=== PATIENT | female | born 1955 | race Caucasian/White ===

== ENCOUNTER 2017-12-28 16:29 | Observation (INO) | payer BC, OTHER ==
[~2017-12-28] VITALS: Ht 170.2 cm; Wt 52.0 kg
[2017-12-28 16:50] VITALS: BP 171/100; PULSE 85; RESP 18; TEMP 97.7; O2SAT 98
--- NOTE | 2017-12-28 16:56 | PD ---
HPI Chief Complaint: Syncope/Near-Syncope Time Seen by Provider: 16:53 Travel History International Travel<30 days: No Contact w/Intl Traveler<30days: No Traveled to known affect area: No History of Present Illness HPI 62-year-old female with PMH of left bundle branch block presents to the ED by EMS for evaluation of near syncopal episode. Patient states that she was enjoying bike week with her when she felt dizziness and palpitations of her heart. She states that she collapsed into his arms. On presentation she reports a lightheaded sensation, mild nausea. She denies vision changes or headache. She denies chest pain, cough, abdominal pain, nausea, vomiting, dysuria. She states that she is visiting from [place], [place]. Per EMS report the patient was in sinus rhythm during transport with a few episodes of SVT. Patient was provided with a dose of Zofran en route. PFSH Social History Tobacco Use: No Allergies-Medications (Allergen,Severity, Reaction): Coded Allergies: No Known Allergies (Verified Allergy, Unknown, 12/28/17) Reported Meds & Prescriptions Reported Meds & Active Scripts Active Reported [Manest] 1 Tab PO DAILY Review of Systems Except as stated in HPI: all other systems reviewed are Neg Physical Exam Narrative GENERAL: Well-nourished, well-developed thin white female in no acute distress. SKIN: Focused skin assessment warm/dry. HEAD: Normocephalic. EYES: No scleral icterus. No injection or drainage. NECK: Supple, trachea midline. No JVD or lymphadenopathy. CARDIOVASCULAR: Regular rate and rhythm without murmurs, gallops, or rubs. RESPIRATORY: Breath sounds clear and equal bilaterally. No accessory muscle use. GASTROINTESTINAL: Abdomen soft, non-tender, nondistended. Active bowel sounds. MUSCULOSKELETAL: No cyanosis, or edema. Moves extremities spontaneously. NEUROLOGICAL: Awake and alert. Cranial nerves II through XII intact. Motor and sensory grossly within normal limits. Five out of 5 muscle strength in all muscle groups. Normal speech. BACK: Nontender without obvious deformity. No CVA tenderness. Data Data Last Documented VS Vital Signs Date Time Temp Pulse Resp B/P (MAP) Pulse Ox O2 Delivery O2 Flow Rate FiO2 12/28/17 16:58 97.8 84 17 158/99 (118) 99 Room Air Orders Orders Electrocardiogram (12/28/17 16:53) Complete Blood Count With Diff (12/28/17 16:53) Comprehensive Metabolic Panel (12/28/17 16:53) Magnesium (Mg) (12/28/17 16:53) Ckmb (Isoenzyme) Profile (12/28/17 16:53) Troponin I (12/28/17 16:53) Act Partial Throm Time (Ptt) (12/28/17 16:53) Prothrombin Time / Inr (Pt) (12/28/17 16:53) Urinalysis - C+S If Indicated (12/28/17 16:53) Chest, Single Ap (12/28/17 16:53) Ct Brain W/O Iv Contrast(Rout) (12/28/17 16:53) Ecg Monitoring (12/28/17 16:53) Iv Access Insert/Monitor (12/28/17 16:53) Oximetry (12/28/17 16:53) Sodium Chloride 0.9% Flush (Ns Flush) (12/28/17 17:00) Potassium Chloride (Kcl) (12/28/17 18:00) Calcium Carbonate Chew (Tums Chew) (12/28/17 18:00) Sodium Chlorid 0.9% 500 Ml Inj (Ns 500 M (12/28/17 18:00) Labs Laboratory Tests Test 12/28/17 17:09 12/28/17 17:24 White Blood Count 10.7 TH/MM3 Red Blood Count 3.31 MIL/MM3 Hemoglobin 10.7 GM/DL Hematocrit 30.7 % Mean Corpuscular Volume 92.9 FL Mean Corpuscular Hemoglobin 32.2 PG Mean Corpuscular Hemoglobin Concent 34.7 % Red Cell Distribution Width 13.4 % Platelet Count 253 TH/MM3 Mean Platelet Volume 7.6 FL Neutrophils (%) (Auto) 72.4 % Lymphocytes (%) (Auto) 18.9 % Monocytes (%) (Auto) 6.3 % Eosinophils (%) (Auto) 1.6 % Basophils (%) (Auto) 0.8 % Neutrophils # (Auto) 7.8 TH/MM3 Lymphocytes # (Auto) 2.0 TH/MM3 Monocytes # (Auto) 0.7 TH/MM3 Eosinophils # (Auto) 0.2 TH/MM3 Basophils # (Auto) 0.1 TH/MM3 CBC Comment DIFF FINAL Differential Comment Prothrombin Time 10.2 SEC Prothromb Time International Ratio 1.0 RATIO Activated Partial Thromboplast Time 23.4 SEC Blood Urea Nitrogen 15 MG/DL Creatinine 0.68 MG/DL Random Glucose 86 MG/DL Total Protein 6.5 GM/DL Albumin 3.1 GM/DL Calcium Level 8.3 MG/DL Magnesium Level 1.8 MG/DL Alkaline Phosphatase 99 U/L Aspartate Amino Transf (AST/SGOT) 13 U/L Alanine Aminotransferase (ALT/SGPT) 23 U/L Total Bilirubin 0.4 MG/DL Sodium Level 141 MEQ/L Potassium Level 3.1 MEQ/L Chloride Level 107 MEQ/L Carbon Dioxide Level 25.0 MEQ/L Anion Gap 9 MEQ/L Estimat Glomerular Filtration Rate 88 ML/MIN Total Creatine Kinase 85 U/L Troponin I LESS THAN 0.02 NG/ML Urine Color YELLOW Urine Turbidity CLEAR Urine pH 8.5 Urine Specific [place] 1.012 Urine Protein NEG mg/dL Urine Glucose (UA) NEG mg/dL Urine Ketones NEG mg/dL Urine Occult Blood SMALL Urine Nitrite NEG Urine Bilirubin NEG Urine Urobilinogen LESS THAN 2.0 MG/DL Urine Leukocyte Esterase TRACE Urine RBC 2 /hpf Urine WBC 1 /hpf Urine Squamous Epithelial Cells 4 /hpf Urine Mucus FEW /lpf Microscopic Urinalysis Comment CULT NOT INDICATED MDM Medical Decision Making Medical Screen Exam Complete: Yes Emergency Medical Condition: Yes Differential Diagnosis Dysrhythmia versus metabolic derangement versus ACS versus ICH versus dehydration versus other Narrative Course 62-year-old female with PMH of left bundle branch block presents to the ED by EMS for evaluation of near syncopal episode. Patient endorses dizziness and palpitations of her heart before collapse. On presentation she reports a lightheaded sensation, mild nausea. She states that she is visiting from [place], [place]. Per EMS report the patient was in sinus rhythm during transport with a few episodes of SVT. Patient was provided with a dose of Zofran en route. Afebrile, pulse 85, BP 171/100 on presentation. On exam this is a petite white female in no acute distress. No focal neuro deficits. No appreciable M/R/E. Chest CTA B. Abdomen soft and nontender. No lower extremity edema. IV was established. Patient was administered 4 mg of Zofran. EKG rate 85, sinus rhythm with occasional PVC sees. NM interval 140, QRS 141, QTC 452 ms. Left axis deviation. Left bundle branch block. No acute ST changes. Reviewed by Dr. Martinez. CXR: No acute disease per radiology read. Cardiac enzymes negative 1. CBC: WBC 10.7, hemoglobin 10.7. Coags: INR 1.0. CMP: Potassium 3.1. BUN 15, creatinine 0.68. Calcium 8.3. UA: her indicated. Patient was administered 1 g calcium chew and 40 mEq of potassium by mouth as well as 500 mL stone saline. I discussed the workup with the patient as well as recommendation for syncopal workup. Patient is agreeable to this plan. Patient's is at bedside and states the patient had a similar episode around 10:00 last night. I spoke with who agrees to accept the patient to the medicine service. Please see medicine notes for disposition. Cary Edwards Dec 28, 2017 16:56
[2017-12-28 16:58] VITALS: BP 158/99; PULSE 81; PULSE 84; RESP 17; TEMP 97.8; O2SAT 99
[2017-12-28] MEDS ORDERED: SODIUM CHLORIDE 0.9% FLUSH 10 ML FLUSH IVF PRN (17:00)
[2017-12-28] MEDS ORDERED: [UNRECOGNIZED DRUG - OTHER] PO (17:04)
--- NOTE | 2017-12-28 17:19 | RADRPT ---
EXAM DATE/TIME: 12/28/2017 17:03 [facility] COMPARISON: No previous studies available for comparison. INDICATIONS : Palpitations, syncope. MEDICAL HISTORY : None. SURGICAL HISTORY : None. ENCOUNTER: Initial ACUITY: 2 days PAIN SCORE: 0/10 LOCATION: Bilateral chest FINDINGS: A single view of the chest demonstrates the lungs to be symmetrically aerated without evidence of mas s, infiltrate or effusion. The cardiomediastinal contours are unremarkable. Osseous structures are intact. CONCLUSION: No acute disease. Durga Marcelino MD on December 28, 2017 at 17:17 Board Certified Radiologist. This report was verified electronically.
[2017-12-28 17:30] LABS: AUTOMATED NEUTROPHIL # 7.8 TH/MM3 (1.8-7.7); BASOPHIL # 0.1 TH/MM3 (0-0.2); BASOPHIL % 0.8 % (0.0-2.0); EOSINOPHIL # 0.2 TH/MM3 (0-0.4); EOSINOPHIL % 1.6 % (0.0-4.0); HEMATOCRIT 30.7 % (35.0-46.0); HEMOGLOBIN 10.7 GM/DL (11.6-15.3); LYMPH % 18.9 % (9.0-44.0); MEAN CELL VOLUME 92.9 FL (80.0-100.0); MEAN CORPUSCULAR HEMOGLOBIN 32.2 PG (27.0-34.0); MEAN CORPUSCULAR HGB CONC 34.7 % (32.0-36.0); MEAN PLATELET VOLUME 7.6 FL (7.0-11.0); MONO % 6.3 % (0.0-8.0); MONOCYTE # 0.7 TH/MM3 (0-0.9); NEUT % 72.4 % (16.0-70.0); PLATELET COUNT 253 TH/MM3 (150-450); RED BLOOD COUNT 3.31 MIL/MM3 (4.00-5.30); RED CELL DISTRIBUTION WIDTH 13.4 % (11.6-17.2); WHITE BLOOD COUNT 10.7 TH/MM3 (4.0-11.0)
--- NOTE | 2017-12-28 17:41 | RADRPT ---
EXAM DATE/TIME: 12/28/2017 17:25 [facility] COMPARISON: No previous studies available for comparison. INDICATIONS : Dizzy, nausea RADIATION DOSE: 34.90 CTDIvol (mGy) MEDICAL HISTORY : None SURGICAL HISTORY : None. ENCOUNTER: Initial ACUITY: 1 day PAIN SCALE: 0/10 LOCATION: cranial TECHNIQUE: Multiple contiguous axial images were obtained of the head. Using automated exposure control and adj ustment of the mA and/or kV according to patient size, radiation dose was kept as low as reasonably a chievable to obtain optimal diagnostic quality images. DICOM format image data is available electro nically for review and comparison. FINDINGS: CEREBRUM: The ventricles are normal for age. No evidence of midline shift, mass lesion, hemorrhage or acute in farction. No extra-axial fluid collections are seen. POSTERIOR FOSSA: The cerebellum and brainstem are intact. The 4th ventricle is midline. The cerebellopontine angle i s unremarkable. EXTRACRANIAL: The visualized portion of the orbits is intact. SKULL: The calvaria is intact. No evidence of skull fracture. CONCLUSION: No acute disease. Durga Marcelino MD on December 28, 2017 at 17:39 Board Certified Radiologist. This report was verified electronically.
[2017-12-28 17:42] LABS: PROTHROMBIN TIME - PATIENT 10.2 SEC (9.8-11.6)
[2017-12-28 17:42] LABS: BILIRUBIN, URINE NEG (NEG); BLOOD, URINE SMALL (NEG); GLUCOSE,URINE NEG (NEG); KETONE, URINE NEG (NEG); MUCUS URINE FEW /lpf (OCC); NITRITE,URINE NEG (NEG); PH, URINE 8.5 (5.0-8.5); SQUAMOUS EPITHELIAL CELL URINE 4 /hpf (0-5); URINE COLOR YELLOW (YELLW/STRAW); URINE LEUKOCYTE ESTERASE TRACE (NEG)
[2017-12-28 17:43] LABS: ALBUMIN 3.1 GM/DL (3.4-5.0); AST (GOT) 13 U/L (15-37); BLOOD UREA NITROGEN 15 MG/DL (7-18); CALCIUM 8.3 MG/DL (8.5-10.1); CHLORIDE 107 MEQ/L (98-107); CREATININE 0.68 MG/DL (0.50-1.00); GLOMERULAR FILTRATION RATE 88 ML/MIN (>89); GLUCOSE,RANDOM 86 MG/DL (74-106); MAGNESIUM 1.8 MG/DL (1.5-2.5); SODIUM (NA) 141 MEQ/L (136-145)
[2017-12-28 17:48] LABS: ALKALINE PHOSPHATASE 99 U/L (45-117); ALT (GPT) 23 U/L (10-53); TOTAL BILIRUBIN ADULT 0.4 MG/DL (0.2-1.0); TOTAL PROTEIN 6.5 GM/DL (6.4-8.2); TROPONIN I LESS THAN 0.02 NG/ML (0.02-0.05)
[2017-12-28] MEDS ORDERED: CALCIUM CARBONATE 500 MG CHEWABLE TAB CHEW ONE (18:00)
[2017-12-28] MEDS ORDERED: POTASSIUM CHLORIDE 20 MEQ CONTROLLED RELEASE TAB PO ONE (18:00)
[2017-12-28] MEDS ORDERED: SODIUM CHLORID 0.9% 500 ML INJ 500 ML IV ONE (18:00)
[2017-12-28 18:23] VITALS: BP 158/99; PULSE 83; RESP 15; O2SAT 99
[2017-12-28] MEDS ORDERED: MAGNESIUM HYDROXIDE SUSP 30 ML CUP PO PRN (18:45)
[2017-12-28] MEDS ORDERED: LACTULOSE SYRUP 20 GM/30 ML CUP PO PRN (18:45)
[2017-12-28] MEDS ORDERED: SENNOSIDES 8.6 MG TAB PO PRN (18:45)
[2017-12-28] MEDS ORDERED: ONDANSETRON HCL 4 MG/2 ML VIAL IVP PRN (18:45)
[2017-12-28] MEDS ORDERED: BISACODYL 10 MG SUPP RECTAL PRN (18:45)
[2017-12-28] MEDS ORDERED: SODIUM CHLORIDE 0.9% FLUSH 10 ML FLUSH IV FLUSH PRN (18:45)
[2017-12-28] MEDS ORDERED: NALOXONE HCL 0.4 MG/ML AMP IV PUSH PRN (18:45)
[2017-12-28] MEDS ORDERED: ACETAMINOPHEN 325 MG TAB PO PRN (18:45)
--- NOTE | 2017-12-28 18:48 | HHI.HP ---
[facility] Service Family Medicine Primary Care Physician No Primary Care Physician Admission Diagnosis near syncope Diagnoses: International Travel<30 Days: No Contact w/Intl Traveler<30days: No Known Affected Area: No History of Present Illness Patient is a 62-year-old female with history significant for LBBB which she states that she had due to a congenital anomaly. Denies a history of ND. Presented here today due to near syncopal episode. Reports that she was walking around the vendors today when she suddenly felt like she was going to pass out. This was around 10:30 AM. Associated with palpitations but no nausea , vomiting, chest pain, S OB. She did endorse feeling flushed. Symptoms waxed and waned for unknown amount of time. Has never had an episode like this before. Reports that symptoms worsened when she would try to get up and be active. Denies LOC or falling. Per chart review, while patient was in EMS there were a few episodes of SVT. Since being in the hospital she feels much better. Denies any recent alcohol use since being on vacation. Had a small breakfast but this is her normal. No recent illness. Patient is typically active. Review of Systems Constitutional: DENIES: Fever, Chills, Dizziness Endocrine: DENIES: Polydipsia, Polyuria Eyes: DENIES: Eye inflammation Ears, nose, mouth, throat: COMPLAINS OF: Vertigo, DENIES: Running Nose Respiratory: DENIES: Cough, Shortness of breath Cardiovascular: COMPLAINS OF: Palpitations, DENIES: Chest pain, Syncope, Dyspnea on Exertion Gastrointestinal: DENIES: Abdominal pain, Bloody stools, Constipation, Diarrhea , Nausea, Vomiting Genitourinary: DENIES: Hematuria, Dysuria Musculoskeletal: DENIES: Joint pain Integumentary: DENIES: Rash Neurologic: DENIES: Abnormal gait, Headache, Seizures Psychiatric: DENIES: Confusion Past Family Social History Past Medical History 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 Does not need to follow with wireless field technician per patient. Past Surgical History Partial hysterectomy 1980 Allergies: Coded Allergies: No Known Allergies (Verified Allergy, Unknown, 12/28/17) Family History Mother: Breast cancer but otherwise healthy Father: Healthy currently very active at the age of 85 Social History Lives with Visiting from [place] for bike week for [employer] Alcohol: Rarely, 3 times a year Tobacco: Denies Illicit drugs: Denies Physical Exam Vital Signs Vital Signs Date Time Temp Pulse Resp B/P (MAP) Pulse Ox O2 Delivery O2 Flow Rate FiO2 12/28/17 18:23 83 15 158/99 (118) 99 Room Air 12/28/17 16:58 97.8 84 17 158/99 (118) 99 Room Air 12/28/17 16:58 97.8 81 17 158/99 (118) 99 Room Air 12/28/17 16:58 83 17 99 Room Air 12/28/17 16:50 97.7 85 18 171/100 (123) 98 Physical Exam GENERAL: Thin woman in no acute distress. SKIN: No rashes, ecchymoses or lesions. Cool and dry. HEAD: Atraumatic. Normocephalic. EYES: Pupils equal round and reactive. Extraocular motions intact. No scleral icterus. No injection or drainage. ENT: Nose without bleeding, purulent drainage. Throat without erythema, tonsillar hypertrophy or exudate. Uvula midline. Airway patent. NECK: No JVD or lymphadenopathy. Supple, nontender, no meningeal signs. CARDIOVASCULAR: Regular rate and rhythm without murmurs, gallops, or rubs. RESPIRATORY: Clear to auscultation. Breath sounds equal bilaterally. No wheezes , rales, or rhonchi. GASTROINTESTINAL: Abdomen soft, non-tender, nondistended. No hepato-splenomegaly , or palpable masses. No guarding. MUSCULOSKELETAL: Extremities without clubbing, cyanosis, or edema. No joint tenderness, effusion, or edema noted. No calf tenderness. NEUROLOGICAL: Awake and alert. Motor and sensory grossly within normal limits. Normal speech. Laboratory Laboratory Tests Test 12/28/17 17:09 12/28/17 17:24 White Blood Count 10.7 Red Blood Count 3.31 Hemoglobin 10.7 Hematocrit 30.7 Mean Corpuscular Volume 92.9 Mean Corpuscular Hemoglobin 32.2 Mean Corpuscular Hemoglobin Concent 34.7 Red Cell Distribution Width 13.4 Platelet Count 253 Mean Platelet Volume 7.6 Neutrophils (%) (Auto) 72.4 Lymphocytes (%) (Auto) 18.9 Monocytes (%) (Auto) 6.3 Eosinophils (%) (Auto) 1.6 Basophils (%) (Auto) 0.8 Neutrophils # (Auto) 7.8 Lymphocytes # (Auto) 2.0 Monocytes # (Auto) 0.7 Eosinophils # (Auto) 0.2 Basophils # (Auto) 0.1 CBC Comment DIFF FINAL Differential Comment Prothrombin Time 10.2 Prothromb Time International Ratio 1.0 Activated Partial Thromboplast Time 23.4 Blood Urea Nitrogen 15 Creatinine 0.68 Random Glucose 86 Total Protein 6.5 Albumin 3.1 Calcium Level 8.3 Magnesium Level 1.8 Alkaline Phosphatase 99 Aspartate Amino Transf (AST/SGOT) 13 Alanine Aminotransferase (ALT/SGPT) 23 Total Bilirubin 0.4 Sodium Level 141 Potassium Level 3.1 Chloride Level 107 Carbon Dioxide Level 25.0 Anion Gap 9 Estimat Glomerular Filtration Rate 88 Total Creatine Kinase 85 Troponin I LESS THAN 0.02 Urine Color YELLOW Urine Turbidity CLEAR Urine pH 8.5 Urine Specific [place] 1.012 Urine Protein NEG Urine Glucose (UA) NEG Urine Ketones NEG Urine Occult Blood SMALL Urine Nitrite NEG Urine Bilirubin NEG Urine Urobilinogen LESS THAN 2.0 Urine Leukocyte Esterase TRACE Urine RBC 2 Urine WBC 1 Urine Squamous Epithelial Cells 4 Urine Mucus FEW Microscopic Urinalysis Comment CULT NOT INDICATED Result Diagram: 12/28/17 1709 12/28/17 170 Imaging Last Impressions Head CT 12/28/171652 Signed Impressions: Service Date/Time: Thursday, December 28, 2017 17:25 - CONCLUSION: No acute disease. Durga Marcelino MD Chest X-Ray 12/28/171652 Signed Impressions: Service Date/Time: Thursday, December 28, 2017 17:03 - CONCLUSION: No acute disease. Durga Marcelino MD [place] VTE Risk Assessment Caprini VTE Risk Assessment: Mod/High Risk (score >= 2) Caprini Risk Assessment Model Point Value = 1 Point Value = 2 Point Value = 3 Point Value = 5 Age 41-60 Minor surgery BMI > 25 kg/m2 Swollen legs Varicose veins or History of unexplained or recurrent spontaneous Oral contraceptives or hormone replacement Sepsis (< 1 month) Serious lung disease, including pneumonia (< 1 month) Abnormal pulmonary function Acute myocardial infarction Congestive heart failure (< 1 month) History of inflammatory bowel disease Medical patient at bed rest Age 61-74 Arthroscopic surgery Major open surgery (> 45 min) Laparoscopic surgery (> 45 min) Malignancy Confined to bed (> 72 hours) Immobilizing plaster cast Central venous access Age >= 75 History of VTE Family history of VTE Factor V Leiden Prothrombin [id number] Lupus anticoagulant Anticardiolipin antibodies Elevated serum homocysteine Heparin-induced thrombocytopenia Other congenital or acquired thrombophilia Stroke (< 1 month) Elective arthroplasty Hip, pelvis, or leg fracture Acute spinal cord injury (< 1 month) Prophylaxis Regimen Total Risk Factor Score Risk Level Prophylaxis Regimen 0-1 Low Early ambulation 2 Moderate Order ONE of the following: *Sequential Compression Device (SCD) *Heparin 5000 units SQ BID 3-4 Higher Order ONE of the following medications: *Heparin 5000 units SQ TID *Enoxaparin/Lovenox 40 mg SQ daily (WT < 150 kg, CrCl > 30 mL/min) *Enoxaparin/Lovenox 30 mg SQ daily (WT < 150 kg, CrCl > 10-29 mL/min) *Enoxaparin/Lovenox 30 mg SQ BID (WT < 150 kg, CrCl > 30 mL/min) AND/OR *Sequential Compression Device (SCD) 5 or more Highest Order ONE of the following medications: *Heparin 5000 units SQ TID (Preferred with Epidurals) *Enoxaparin/Lovenox 40 mg SQ daily (WT < 150 kg, CrCl > 30 mL/min) *Enoxaparin/Lovenox 30 mg SQ daily (WT < 150 kg, CrCl > 10-29 mL/min) *Enoxaparin/Lovenox 30 mg SQ BID (WT < 150 kg, CrCl > 30 mL/min) AND *Sequential Compression Device (SCD) Assessment and Plan Assessment and Plan 62yo female with hx significant for LBBB not related to CAD. Admitted for pre- syncope. Code Status Full Problem List: (1) Pre-syncope ICD Codes: R55 - Syncope and collapse Status: Acute Plan: Patient presenting with a first-time episode of near syncopal symptoms that developed suddenly and associated with palpitations. Per chart review, there was intermittent episodes of SVT during the ambulance ride to the hospital. Per ED documentation: EKG in the ED showed sinus rhythm with occasional PVCs and LBBB. Symptoms likely related to vasovagal vs orthostatics however there is a history of a cardiac defect that may place patient at a higher risk for cardiac etiology. -low concern for ACS but will trend troponins and EKG -Orthostatics ordered -Monitor bedside glucose -TSH ordered -Echo also ordered for evaluation of structural abnormalities -Cardiac telemetry 24 hours (2) History of left bundle branch block (LBBB) ICD Codes: Z86.79 - Personal history of other diseases of the circulatory system Plan: History of left bundle branch block but are not related to ND per patient. 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 Reports that she does not have to follow with a wireless field technician at this time. Has had no issues cardiac related. -Of note patient's BP has been elevated in the ED, not currently any medications. Continue to follow to determine need of further treatment. -Vasotec as needed for blood pressure (3) Anemia ICD Codes: D64.9 - Anemia, unspecified Status: Acute Plan: Low hemoglobin found on admission. Patient does not report a history of anemia. No evidence of acute bleed. -Ferritin ordered -May benefit from further workup as an outpatient for cause of anemia in postmenopausal woman (4) Nutrition, metabolism, and development symptoms ICD Codes: R63.8 - Other symptoms and signs concerning food and fluid intake Plan: Diet: Regular Fluids: PO hydration Electrolytes: Mild hypokalemia repleted 40 MEQ DVT prophylaxis: Lovenox GI prophylaxis: Not indicated Susan Holcomb MD, R3 Dec 28, 2017 18:48
[2017-12-28 19:19] VITALS: BP 168/98; PULSE 86; RESP 19; O2SAT 99
[2017-12-28] MEDS ORDERED: ENALAPRILAT 1.25 MG/ML VIAL IV PUSH PRN (20:15)
[2017-12-28 20:20] VITALS: BP 145/88; PULSE 82; RESP 17; O2SAT 97
[2017-12-28] MEDS: DOCUSATE SODIUM 50 MG/SENNA 8.6 MG TAB PO SCH (21:00)
[2017-12-28 21:20] VITALS: BP 138/94; PULSE 79; RESP 15; O2SAT 97
[2017-12-28] MEDS: ENOXAPARIN SODIUM 40 MG/0.4 ML SYRINGE SQ SCH (21:55)
[2017-12-28] MEDS: SODIUM CHLORIDE 0.9% FLUSH 10 ML FLUSH IV FLUSH SCH (21:55)
[2017-12-29] VITALS (9 sets, daily range): BP systolic 126–167; BP diastolic 81–100; PULSE 71–92; RESP 18–20; TEMP 97.2–98.4; O2SAT 97–100
[2017-12-29 00:06] LABS: FERRITIN 71 NG/ML (8-252); TROPONIN I LESS THAN 0.02 NG/ML (0.02-0.05)
[2017-12-29 05:49] LABS: AUTOMATED NEUTROPHIL # 4.3 TH/MM3 (1.8-7.7); BASOPHIL # 0.1 TH/MM3 (0-0.2); EOSINOPHIL # 0.2 TH/MM3 (0-0.4); HEMATOCRIT 29.5 % (35.0-46.0); HEMOGLOBIN 10.4 GM/DL (11.6-15.3); LYMPH % 35.2 % (9.0-44.0); LYMPHOCYTE # 2.9 TH/MM3 (1.0-4.8); MEAN CELL VOLUME 92.3 FL (80.0-100.0); MEAN CORPUSCULAR HEMOGLOBIN 32.4 PG (27.0-34.0); MEAN CORPUSCULAR HGB CONC 35.1 % (32.0-36.0); MEAN PLATELET VOLUME 7.6 FL (7.0-11.0); MONO % 7.8 % (0.0-8.0); MONOCYTE # 0.6 TH/MM3 (0-0.9); PLATELET COUNT 245 TH/MM3 (150-450); RED CELL DISTRIBUTION WIDTH 13.3 % (11.6-17.2); WHITE BLOOD COUNT 8.1 TH/MM3 (4.0-11.0)
[2017-12-29 05:59] LABS: BICARBONATE 27.1 MEQ/L (21.0-32.0); BLOOD UREA NITROGEN 12 MG/DL (7-18); CALCIUM 8.6 MG/DL (8.5-10.1); CHLORIDE 110 MEQ/L (98-107); CREATININE 0.59 MG/DL (0.50-1.00); GLOMERULAR FILTRATION RATE 103 ML/MIN (>89); GLUCOSE,RANDOM 97 MG/DL (74-106); SODIUM (NA) 143 MEQ/L (136-145)
[2017-12-29 06:03] LABS: TROPONIN I LESS THAN 0.02 NG/ML (0.02-0.05)
[2017-12-29] MEDS: DOCUSATE SODIUM 50 MG/SENNA 8.6 MG TAB PO SCH ×2 (09:00→21:27)
--- NOTE | 2017-12-29 12:09 | HHI.FPPN ---
Subjective Remarks Patient was seen and examined this morning by medical team. She denies any chest pain, shortness of breath, syncopal episodes. She feels better than she did upon arrival at the ED yesterday. She is eating without nausea or vomiting. She is ambulating without difficulty. (Jolie Galaviz MD) Objective Vitals Vital Signs Date Time Temp Pulse Resp B/P (MAP) Pulse Ox O2 Delivery O2 Flow Rate FiO2 12/29/17 08:00 92 12/29/17 08:00 97.5 83 20 135/90 (105) 98 159/85 (109) 148/85 (106) 12/29/17 04:00 98.0 82 18 132/81 (98) 97 12/29/17 00:00 97.2 71 18 167/100 (122) 99 12/28/17 21:20 79 15 138/94 (109) 97 Room Air 12/28/17 20:20 82 17 145/88 (107) 97 Room Air 12/28/17 19:19 86 19 168/98 (121) 99 Room Air 12/28/17 18:23 83 15 158/99 (118) 99 Room Air 12/28/17 16:58 97.8 84 17 158/99 (118) 99 Room Air 12/28/17 16:58 97.8 81 17 158/99 (118) 99 Room Air 12/28/17 16:58 83 17 99 Room Air 12/28/17 16:50 97.7 85 18 171/100 (123) 98 I/O 12/28/17 12/28/17 12/28/17 12/29/17 12/29/17 12/29/17 07:00 15:00 23:00 07:00 15:00 23:00 Intake Total 1000 ml 240 ml Balance 1000 ml 240 ml Intake Oral 240 ml IV Total 1000 ml # Voids 1 # Bowel Movements 0 (Jolie Galaviz MD) Result Diagram: 12/29/1743912/29/17439 Imaging Last Impressions Head CT 12/28/171652 Signed Impressions: Service Date/Time: Thursday, December 28, 2017 17:25 - CONCLUSION: No acute disease. Durga Marcelino MD Chest X-Ray 12/28/171652 Signed Impressions: Service Date/Time: Thursday, December 28, 2017 17:03 - CONCLUSION: No acute disease. Durga Marcelino MD Objective Remarks GENERAL: Well-appearing female in no apparent distress. SKIN: No rashes, ecchymoses or lesions. Cool and dry. HEAD: Atraumatic. Normocephalic. EYES: Pupils equal round and reactive. Extraocular motions intact. No scleral icterus. No injection or drainage. ENT: Nose without bleeding, purulent drainage. Airway patent. NECK: No JVD or lymphadenopathy. Supple, nontender, no meningeal signs. CARDIOVASCULAR: Regular rate and rhythm without murmurs, gallops, or rubs. Telemetry in the room showing short asymptomatic segments of abnormal rhythm. RESPIRATORY: Clear to auscultation. Breath sounds equal bilaterally. No wheezes , rales, or rhonchi. GASTROINTESTINAL: Abdomen soft, non-tender, nondistended. No hepato-splenomegaly , or palpable masses. No guarding. MUSCULOSKELETAL: Extremities without clubbing, cyanosis, or edema. No joint tenderness, effusion, or edema noted. No calf tenderness. NEUROLOGICAL: Awake and alert. Motor and sensory grossly within normal limits. Normal speech. Medications and IVs Last Impressions Head CT 12/28/171652 Signed Impressions: Service Date/Time: Thursday, December 28, 2017 17:25 - CONCLUSION: No acute disease. Durga Marcelino MD Chest X-Ray 12/28/171652 Signed Impressions: Service Date/Time: Thursday, December 28, 2017 17:03 - CONCLUSION: No acute disease. Durga Marcelino MD (Jolie Galaviz MD) Urinary Catheter: No (Jolie Galaviz MD) Vascular Central Line Catheter: No (Jolie Galaviz MD) A/P Assessment and Plan 62yo female with hx significant for LBBB diagnosed in early adulthood not related to CAD. Admitted for pre-syncopal work-up. Discharge Planning Anticipate additional 24hr observation-status stay for further workup to include telemetry, echocardiogram, cardiology consult evaluation. Patient was seen and examined with Dr. Viky Brown, David Perez, and Susan Holcomb. (Jolie Galaviz MD) Attending Attestation This patient was seen, examined and discussed with the entire medicine team, including Bartolome Sr Turner and Guillaume. Yesterday, she was admitted for a near syncopal episode. Has not had other symptoms, thinks she had been drinking adequate fluids. Does not use alcohol. Visiting here from [place] with her . She experienced occasional brief sensations of rapid heartbeat overnight which resolved spontaneously. Reports having been diagnosed with left bundle branch block many years ago in the early 1980s. No treatment for this and she does not see a engineering consultant. She was not monitored adequately overnight due to bed placement error, and thus will need to be monitored today and perhaps through the night. She understands. I agree with the physical findings and the plan as documented. (Viky Brown MD) Problem List: (1) Pre-syncope ICD Codes: R55 - Syncope and collapse Status: Acute Plan: TSH within normal limits. Cardiac enzymes negative 3, EKG 3 collected and one is notable for possible SVT short segment. Continue cardiac telemetry (patient was not placed on cardiac telemetry until approximately 10 AM on 12/29). Cardiology consulted on 12/29 given unusual history of LBBB and new pre-syncopal episode. Echo pending. Orthostatic vital signs pending. Ferritin level normal. On admission: Patient presenting with a first-time episode of near syncopal symptoms that developed suddenly and associated with palpitations. Per chart review, there was intermittent episodes of SVT during the ambulance ride to the hospital. Per ED documentation: EKG in the ED showed sinus rhythm with occasional PVCs and LBBB. Symptoms likely related to vasovagal vs orthostatics however there is a history of a cardiac defect that may place patient at a higher risk for cardiac etiology. (2) History of left bundle branch block (LBBB) ICD Codes: Z86.79 - Personal history of other diseases of the circulatory system Plan: History of left bundle branch block but are not related to [place] per patient. 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 Reports that she does not have to follow with a engineering consultant at this time. Has had no issues cardiac related. -Of note patient's BP has been elevated in the ED, not currently any medications. Continue to follow to determine need of further treatment. -Vasotec as needed for blood pressure. (3) Anemia ICD Codes: D64.9 - Anemia, unspecified Status: Acute Plan: Low hemoglobin found on admission. Patient does not report a history of anemia. No evidence of acute bleed. -Ferritin ordered. -May benefit from further workup as an outpatient for cause of anemia in postmenopausal woman. (4) Nutrition, metabolism, and development symptoms ICD Codes: R63.8 - Other symptoms and signs concerning food and fluid intake Plan: Diet: Regular Fluids: PO hydration Electrolytes: Mild hypokalemia resolved DVT prophylaxis: Lovenox 40 mg sq daily GI prophylaxis: Not indicated (Jolie Galaviz MD) Jolie Galaviz MD Dec 29, 2017 12:09 Viky Brown MD Dec 29, 2017 14:44
--- NOTE | 2017-12-29 15:42 | MB ---
cc: Juan Davalos MD DATE OF CONSULT: Ms. Walton is a 62-year-old white female with a history of a left bundle branch block. She is in town for a bike week from [place]. She was walking, felt hungry and suddenly felt dizzy and lightheaded. Her turned around to support her and she passed out about 10 seconds of dizziness. She also felt flushed. She is not sure if she completely lost consciousness. She has not had any chest pain, shortness of breath, or palpitations. She has not had any peripheral edema. She has a brim stretcher, Dr. Tommy Panchal, in [place], [place]. PAST MEDICAL HISTORY: Positive for left bundle branch block diagnosed as a child, partial hysterectomy. No history of hypertension, dyslipidemia, diabetes mellitus, coronary artery disease or CVA. MEDICATIONS: Menest. ALLERGIES: NONE. SOCIAL HISTORY: Patient is a smoker. She drinks alcohol rarely. She keeps complaining about her . She is visiting for a bike week from [place]. FAMILY HISTORY: Significant for heart disease. REVIEW OF SYSTEMS: Otherwise negative. PHYSICAL EXAMINATION: Blood pressure 140/91, pulse 73 and regular. HEENT: Negative, 2+ carotid upstrokes, no bruits. LUNGS: Clear. HEART: Regular with no murmur, gallop or rub. ABDOMEN: Soft, no bruits. EXTREMITIES: Without edema, 2+ distal pulses. NEUROLOGIC: Grossly nonfocal. ELECTROCARDIOGRAM: Reviewed and showed normal sinus rhythm, left axis and left bundle branch block. LABORATORIES: Hemoglobin 10.4. Potassium 3.8, creatinine 0.6. Troponin negative x 3. AST and ALT normal. TSH 0.64. CK 85. DIAGNOSES: 1. Syncope. 2. Left bundle branch block. 3. Anemia. 4. Smoking. DISPOSITION: Ms. Walton will be monitored on telemetry. We will obtain echocardiogram to evaluate her left ventricular function and to evaluate for structural heart disease. She is not driving at this time. She and her are planning to return back home on Thursday, and she will follow up with her brim stretcher, Dr. Tommy Panchal, in [place] shortly after discharge. I will follow her for cardiology during her hospitalization. MD FOUZIA Ballesteros , 03:20 PM , 03:41 PM [facility] HOSPITALYasmine
--- NOTE | 2017-12-29 17:59 | ECHRPT ---
Indication: ATRIAL FIB/FLUTTER CONCLUSIONS Normal left ventricular size. Mild concentric left ventricular hypertrophy. The left ventricular systolic function is low normal with an estimated ejection fraction in the rang e of 50- 55%. Septal WMA secondary to LBBB. The left atrial size is mildly dilated. The right atrial size is [id number] dilated. Mild mitral valve regurgitation. Aortic valve sclerosis is present. There is moderate tricuspid regurgitation. The estimated pulmonary arterial pressure is 35 mmHg. Mild pulmonary valve regurgitation. BP: 148 / 85 HR: 92 Rhythm: Sinus MEASUREMENTS (Male / Female) Normal Values Technical Quality:Fair 2D ECHO LV Diastolic Diameter PLAX 4.0 cm 4.2 - 5.9 / 3.9 - 5.3 cm LV Systolic Diameter PLAX 3.1 cm IVS Diastolic Thickness 1.4 cm 0.6 - 1.0 / 0.6 - 0.9 cm LVPW Diastolic Thickness 1.0 cm 0.6 - 1.0 / 0.6 - 0.9 cm LV Relative Wall Thickness 0.6 RV Internal Dim ED PLAX 2.8 cm LVOT Diameter 1.6 cm LA Systolic Diameter LX 3.1 cm 3.0 - 4.0 / 2.7 - 3.8 cm LA Volume Index 44.1 cm/m 16 - 28 cm/m M-MODE Aortic Root Diameter MM 2.8 cm LA Systolic Diameter MM 4.0 cm LA Ao Ratio MM 1.4 AV Cusp Separation MM 1.5 cm DOPPLER AV Peak Velocity 167.0 cm/s AV Peak Gradient 11.2 mmHg LVOT Peak Velocity 100.0 cm/s LVOT Peak Gradient 4.0 mmHg AV Area Cont Eq pk 1.2 cm MV Area PHT 3.4 cm Mitral E Point Velocity 61.1 cm/s Mitral A Point Velocity 82.7 cm/s Mitral E to A Ratio 0.7 LV E' Lateral Velocity 7.7 cm/s Mitral E to LV E' Lateral Ratio 7.9 LV E' Septal Velocity 5.6 cm/s Mitral E to LV E' Septal Ratio 11.0 TR Peak Velocity 252.0 cm/s TR Peak Gradient 25.4 mmHg Right Atrial Pressure 10.0 mmHg Pulmonary Artery Systolic Pressu 35.4 mmHg Right Ventricular Systolic Press 35.4 mmHg FINDINGS LEFT VENTRICLE Normal left ventricular size. Mild concentric left ventricular hypertrophy. The left ventricular systolic function is low normal with an estimated ejection fraction in the rang e of 50- 55%. RIGHT VENTRICLE Normal right ventricular size and systolic function. LEFT ATRIUM The left atrial size is mildly dilated. RIGHT ATRIUM The right atrial size is [id number] dilated. ATRIAL SEPTUM No atrial level shunt is demonstrated by color flow Doppler interrogation. AORTA The aortic root and proximal ascending aorta are normal in size on limited imaging. MITRAL VALVE Mild mitral valve regurgitation. AORTIC VALVE Aortic valve sclerosis is present. TRICUSPID VALVE There is moderate tricuspid regurgitation. The estimated pulmonary arterial pressure is 35.4 mmHg. PULMONARY VALVE Mild pulmonary valve regurgitation. VESSELS The inferior vena cava is dilated. There is greater than 50% respiratory change in dimension of the inferior vena cava (normal). PERICARDIUM No pericardial effusion. Juan Davalos MD, FACC (Electronically Signed) Final Date:29 December 2017 17:57
--- NOTE | 2017-12-29 19:18 | EKG ---
Date Performed: 12/29/2017 Time Performed: 06:31:12 PTAGE: 62 years EKG: Sinus rhythm POSSIBLE LEFT ATRIAL ENLARGEMENT MARKED LEFT AXIS DEVIATION LEFT BUNDLE BRANCH BLOCK ABNORMAL ECG PREVIOUS TRACING : 12/28/2017 23.19 Since the previous tracing, no significant change noted DOCTOR: Juan Davalos Interpretating Date/Time 12/29/2017 19:17:01
--- NOTE | 2017-12-29 19:50 | EKG ---
Date Performed: 12/28/2017 Time Performed: 23:19:09 PTAGE: 62 years EKG: Sinus rhythm POSSIBLE LEFT ATRIAL ENLARGEMENT MARKED LEFT AXIS DEVIATION LEFT BUNDLE BRANCH BLOCK ABNORMAL ECG PREVIOUS TRACING : 12/28/2017 16.51 Since the previous tracing, no significant change noted DOCTOR: Juan Davalos Interpretating Date/Time 12/29/2017 19:48:51
--- NOTE | 2017-12-29 20:12 | EKG ---
Date Performed: 12/28/2017 Time Performed: 16:51:34 PTAGE: 62 years EKG: Sinus rhythm WITH OCCASIONAL SUPRAVENTRICULAR PREMATURE COMPLEXES POSSIBLE LEFT ATRIAL ENLARGEMENT MARKED LEFT AX IS DEVIATION LEFT BUNDLE BRANCH BLOCK ABNORMAL ECG NO PREVIOUS TRACING DOCTOR: Juan Davalos Interpretating Date/Time 12/29/2017 20:11:11
[2017-12-29] MEDS: SODIUM CHLORIDE 0.9% FLUSH 10 ML FLUSH IV FLUSH SCH ×2 (21:00→21:26)
[2017-12-29] MEDS: ENOXAPARIN SODIUM 40 MG/0.4 ML SYRINGE SQ SCH (21:27)
[2017-12-30] VITALS (7 sets, daily range): BP systolic 141–162; BP diastolic 83–97; PULSE 52–88; RESP 16–18; TEMP 97.8–98.2; O2SAT 94–98
[2017-12-30] MEDS: DOCUSATE SODIUM 50 MG/SENNA 8.6 MG TAB PO SCH (09:00)
[2017-12-30] MEDS: SODIUM CHLORIDE 0.9% FLUSH 10 ML FLUSH IV FLUSH SCH (09:45)
[2017-12-30] MEDS ORDERED: PNEUMOCOCCAL POLYVALENT INJ 25 MCG/0.5 ML SYR IM ONE (10:00)
[2017-12-30] MEDS ORDERED: INFLUENZA VIRUS VACCINE (QUADRIVALENT) 0.5 ML SYR IM ONE (10:00)
--- NOTE | 2017-12-30 10:51 | HHI.FPPN ---
Subjective Remarks Patient was seen and examined this morning. No acute overnight events. She denies chest pain, shortness breath, nausea, vomiting, lower extremity swelling. She has been asymptomatic since arrival to the hospital. She has not had any presyncopal episodes or falls. Echocardiogram read by car washer reviewed with patient, showing normal to mildly reduced EF, LBBB, LVH. Patient states she was on antihypertensives remotely but has not been on any in quite some time. She does intend to reestablish with her car washer when she returns to [place] in 1 week. She feels ready to go home. (Jolie Galaviz MD) Objective Vitals Vital Signs Date Time Temp Pulse Resp B/P (MAP) Pulse Ox O2 Delivery O2 Flow Rate FiO2 12/30/17 07:29 98.0 88 18 146/83 (104) 96 12/30/17 07:15 72 12/30/17 04:35 98.0 85 16 141/87 (105) 94 12/30/17 04:04 52 12/30/17 04:03 81 12/30/17 00:50 98.2 76 16 147/88 (107) 98 12/29/17 23:58 80 12/29/17 21:40 90 12/29/17 21:09 97.6 88 18 157/90 (112) 100 141/87 (105) 150/91 (110) 12/29/17 16:07 87 12/29/17 15:56 98.4 88 18 126/81 (96) 97 12/29/17 12:00 97.9 73 20 140/91 (107) 98 I/O 12/29/17 12/29/17 12/29/17 12/30/17 12/30/17 12/30/17 07:00 15:00 23:00 07:00 15:00 23:00 Intake Total 240 ml Balance 240 ml Intake Oral 240 ml # Voids 1 3 # Bowel Movements 0 (Jolie Galaviz MD) Result Diagram: 12/29/1743912/29/17439 Imaging Last Impressions Head CT 12/28/171652 Signed Impressions: Service Date/Time: Thursday, December 28, 2017 17:25 - CONCLUSION: No acute disease. Durga Marcelino MD Chest X-Ray 12/28/171652 Signed Impressions: Service Date/Time: Thursday, December 28, 2017 17:03 - CONCLUSION: No acute disease. Durga Marcelino MD Objective Remarks GENERAL: Well-appearing female in no apparent distress. SKIN: No rashes, ecchymoses or lesions. Cool and dry. HEAD: Atraumatic. Normocephalic. EYES: Pupils equal round and reactive. Extraocular motions intact. No scleral icterus. No injection or drainage. ENT: Nose without bleeding, purulent drainage. Airway patent. NECK: No JVD or lymphadenopathy. Supple, nontender, no meningeal signs. CARDIOVASCULAR: Regular rate and rhythm without murmurs, gallops, or rubs. RESPIRATORY: Clear to auscultation. Breath sounds equal bilaterally. No wheezes , rales, or rhonchi. GASTROINTESTINAL: Abdomen soft, non-tender, nondistended. No hepato-splenomegaly , or palpable masses. No guarding. MUSCULOSKELETAL: Extremities without clubbing, cyanosis, or edema. No joint tenderness, effusion, or edema noted. No calf tenderness. NEUROLOGICAL: Awake and alert. Motor and sensory grossly within normal limits. Normal speech. Medications and IVs Inpatient Medications Acetaminophen (Tylenol) 650 mg Q6H PRN PO PAIN SCALE 1 TO 10; Start 12/28/17 at 18:45 Bisacodyl (Dulcolax Supp) 10 mg DAILY PRN RECTAL SEVERE CONSITIPATION; Start at 18:45 Calcium Carbonate (Tums Chew) 1,000 mg ONCE ONCE CHEW Last administered on 10/05at 18:24; Start 12/28/17 at 18:00; Stop 12/28/17 at 18:01; Status DC Enalaprilat (Vasotec Inj) 1.25 mg Q6H PRN IV PUSH SBP> OR = 180, DBP> OR = 100 ; Start 12/28/17 at 20:15 Enoxaparin Sodium (Lovenox Inj) 40 mg Q24H SQ Last administered on 12/29/17at 21 :27; Start 12/28/17 at 21:00 Influenza Virus Vaccine (Flu (Quadrivalent) Vaccine Inj) 0.5 ml ONCE ONCE IM ; Start 12/30/17 at 10:00; Stop 12/30/17 at 10:01; Status DC Lactulose (Lactulose Liq) 30 ml DAILY PRN PO SEVERE CONSITIPATION; Start at 18:45 Magnesium Hydroxide (Milk Of Magnesia Liq) 30 ml Q12H PRN PO Mild constipation ; Start 12/28/17 at 18:45 Naloxone HCl (Narcan Inj) 0.4 mg UNSCH PRN IV PUSH SEE LABEL COMMENTS; Start at 18:45 Ondansetron HCl (Zofran Inj) 4 mg Q6H PRN IVP NAUSEA OR VOMITING; Start at 18:45 Pneumococcal Polyvalent Vaccine (Pneumovax-23 Inj) 25 mcg ONCE ONCE IM ; Start 12/30/17 at 10:00; Stop 12/30/17 at 10:01; Status DC Potassium Chloride (KCl) 40 meq ONCE ONCE PO Last administered on 12/28/17at 18 :24; Start 12/28/17 at 18:00; Stop 12/28/17 at 18:01; Status DC Senna/Docusate Sodium (Brittany-Colace) 1 tab BID PO Last administered on at 21:27; Start 12/28/17 at 21:00 Sennosides (Senokot) 17.2 mg Q12H PRN PO Moderate constipation; Start 12/28/17 at 18:45 Sodium Chloride (NS Flush) 2 ml BID IV FLUSH Last administered on 12/30/17at 09: 45; Start 12/28/17 at 21:00 (Jolie Galaviz MD) Urinary Catheter: No (Jolie Galaviz MD) Vascular Central Line Catheter: No (Jolie Galaviz MD) A/P Assessment and Plan 62yo female with hx significant for LBBB diagnosed in early adulthood not related to CAD. Admitted for pre-syncopal work-up. Discharge Planning Telemetry workup not significant for repetitive acute events, patient has remained asymmetric. Echocardiogram reviewed and not showing any acute structural concerns. Will confirm with cardiology that she may follow-up with her car washer as an outpatient. Anticipate discharge later on today 12/30 Patient was seen and examined with Dr. David Perez and discussed with Dr.Susan Brown (Jolie Galaviz MD) Attending Attestation Pt seen and examined at approximately 10 a.m. today after discussion with Drs. Galaviz and Perez. She is completely asymptomatic and has plans to follow-up with a car washer when she returns to [facility] regarding her LBBB and borderline hypertension. She would like to go home if it is safe today. I agree with the exam findings and the plan as documented above. (Viky Brown MD) Problem List: (1) Pre-syncope ICD Codes: R55 - Syncope and collapse Status: Acute Plan: TSH within normal limits. Cardiac enzymes negative 3, EKG 3 collected and one is notable for possible SVT short segment. Cardiac telemetry showing small 5 beat episode of possible wide-complex tachycardia this morning but this was asymptomatic and has not recurred. Echocardiogram within normal limits aside from LBBB, LVH, EF 50% Will confirm the patient is stable for discharge with cardiology who has been consulted, appreciate assistance in managing. Orthostatic vital signs normal. Ferritin level normal. On admission: Patient presenting with a first-time episode of near syncopal symptoms that developed suddenly and associated with palpitations. Per chart review, there was intermittent episodes of SVT during the ambulance ride to the hospital. Per ED documentation: EKG in the ED showed sinus rhythm with occasional PVCs and LBBB. Symptoms likely related to vasovagal vs orthostatics however there is a history of a cardiac defect that may place patient at a higher risk for cardiac etiology. (2) History of left bundle branch block (LBBB) ICD Codes: Z86.79 - Personal history of other diseases of the circulatory system Status: Chronic Plan: History of left bundle branch block but are not related to [place] per patient. Reports that was identified as young adult due to a congenital heart defect. Reports that she does not have to follow with a car washer at this time but can rest. -Of note patient's BP has been elevated but not consistently above 150/90. Per JNC-8 guidelines, not yet indicated to treat her with antihypertensive therapy but recommended to patient that she monitors her BP closely as home and discuss BP medications with her doctor. -Vasotec PRN for SBP > 180/ and/or DBP > 100 (3) Anemia ICD Codes: D64.9 - Anemia, unspecified Status: Acute Plan: Low hemoglobin found on admission. Patient does not report a history of anemia. No evidence of acute bleed. -Ferritin ordered. -May benefit from further workup as an outpatient for cause of anemia in postmenopausal woman. (4) Nutrition, metabolism, and development symptoms ICD Codes: R63.8 - Other symptoms and signs concerning food and fluid intake Plan: Diet: Regular Fluids: PO hydration Electrolytes: Mild hypokalemia resolved DVT prophylaxis: Lovenox 40 mg sq daily GI prophylaxis: Not indicated (Jolie Galaviz MD) Problem Qualifiers (1) Anemia: Qualified Codes: D64.9 - Anemia, unspecified Jolie Galaviz MD Dec 30, 2017 10:51 Viky Brown MD Dec 30, 2017 13:52
--- NOTE | 2017-12-30 10:54 | HHI.DCPOC ---
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 Avoid second hand smoke Call the 24-hour hour crisis hotline for domestic abuse at Jolie Galaviz MD Dec 30, 2017 10:54
--- NOTE | 2017-12-30 13:20 | PD.CARD.PN ---
Subjective Subjective Remarks No CP, SOB, or dizziness Objective Medications Current Medications Medications (Trade) Dose Ordered Sig/Jonnie Route Start Time Stop Time Status Last Admin (NS Flush) 2 ml UNSCH PRN IVF 12/28/17 17:00 (NS Flush) 2 ml UNSCH PRN IV FLUSH 12/28/17 18:45 (NS Flush) 2 ml BID IV FLUSH 12/28/17 21:00 12/30/17 09:45 (Zofran Inj) 4 mg Q6H PRN IVP 12/28/17 18:45 (Lovenox Inj) 40 mg Q24H SQ 12/28/17 21:00 12/29/17 21:27 (Tylenol) 650 mg Q6H PRN PO 12/28/17 18:45 (Narcan Inj) 0.4 mg UNSCH PRN IV PUSH 12/28/17 18:45 (Brittany-Colace) 1 tab BID PO 12/28/17 21:00 12/29/17 21:27 (Milk Of Magnesia Liq) 30 ml Q12H PRN PO 12/28/17 18:45 (Senokot) 17.2 mg Q12H PRN PO 12/28/17 18:45 (Dulcolax Supp) 10 mg DAILY PRN RECTAL 12/28/17 18:45 (Lactulose Liq) 30 ml DAILY PRN PO 12/28/17 18:45 (Vasotec Inj) 1.25 mg Q6H PRN IV PUSH 12/28/17 20:15 Vital Signs / I&O Vital Signs Date Time Temp Pulse Resp B/P (MAP) Pulse Ox O2 Delivery O2 Flow Rate FiO2 12/30/17 10:51 97.8 81 18 151/94 (113) 96 155/94 (114) 162/97 (118) 12/30/17 07:29 98.0 88 18 146/83 (104) 96 12/30/17 07:15 72 12/30/17 04:35 98.0 85 16 141/87 (105) 94 12/30/17 04:04 52 12/30/17 04:03 81 12/30/17 00:50 98.2 76 16 147/88 (107) 98 12/29/17 23:58 80 12/29/17 21:40 90 12/29/17 21:09 97.6 88 18 157/90 (112) 100 141/87 (105) 150/91 (110) 12/29/17 16:07 87 12/29/17 15:56 98.4 88 18 126/81 (96) 97 I/O 12/29/17 12/29/17 12/29/17 12/30/17 12/30/17 12/30/17 07:00 15:00 23:00 07:00 15:00 23:00 Intake Total 240 ml Balance 240 ml Intake Oral 240 ml # Voids 1 3 # Bowel Movements 0 Physical Exam GENERAL: In NAD SKIN: Warm and dry. HEAD: Normocephalic. EYES: No scleral icterus. No injection or drainage. NECK: Supple, trachea midline. No JVD or lymphadenopathy. CARDIOVASCULAR: Regular rate and rhythm without murmurs, gallops, or rubs. RESPIRATORY: Breath sounds equal bilaterally. No accessory muscle use. GASTROINTESTINAL: Abdomen soft, non-tender, nondistended. MUSCULOSKELETAL: No cyanosis, or edema. Assessment and Plan Problem List: (1) Pre-syncope ICD Codes: R55 - Syncope and collapse Status: Acute (2) History of left bundle branch block (LBBB) ICD Codes: Z86.79 - Personal history of other diseases of the circulatory system Status: Chronic (3) Anemia ICD Codes: D64.9 - Anemia, unspecified Status: Acute Assessment and Plan No recurrent symptoms. Tele with no significant arrhythmias. Echo with borderline nl LV systolic fx. OK to discharge home. Pt instructed to follow up with her polish maker at home for further outpatient cardiac monitoring. Problem Qualifiers (1) Anemia: Qualified Codes: D64.9 - Anemia, unspecified Juan Davalos MD Dec 30, 2017 13:20
== END 2017-12-30 14:28 | disposition home or self-care (01) ==
LOC: NEPE 16:29 → NEDA 18:14 → NEDH 22:36 → NEPHCDU 12-29 13:31
PROVIDERS: ADMIT Family Medicine; ATTEND Family Medicine
DX: R55 Syncope and collapse (principal); I44.7 Left bundle-branch block, unspecified; I47.1 Supraventricular tachycardia; D64.9 Anemia, unspecified; E87.6 Hypokalemia; R11.0 Nausea; R94.31 Abnormal electrocardiogram [ECG] [EKG]; F17.200 Nicotine dependence, unspecified, uncomplicated
CPT/HCPCS: 70450; 71045; 80048; 80053; 81001; 82550; 82728; 82948; 83735; 84443; 84484; 85025; 85610; 85730; 93005; 93306; 96360; 96361; 96372; 99285; G0378; J1650; J7040